=== PATIENT | female | born 1995 | race Caucasian/White ===

== ENCOUNTER 2020-01-18 23:36 | Emergency (ER) | payer OTHER ==
[~2020-01-18] VITALS: Ht 162.6 cm; Wt 56.7 kg
[2020-01-18 23:47] VITALS: Ht 162.6 cm; Wt 56.7 kg
[2020-01-19 01:35] LABS: UA SPECIFIC GRAVITY 1.015 (1.005-1.035); microscopic required? YES; urine erythrocyte 2+ (NEGATIVE)
[2020-01-19 01:56] VITALS: BP 107/58
== END 2020-01-19 01:56 | disposition home or self-care (01) ==
LOC: ED 23:36
PROVIDERS: Specialist
DX: S30.811A Abrasion of abdominal wall, initial encounter (principal); S20.312A Abrasion of left front wall of thorax, initial encounter; M54.5 Low back pain; V49.59XA Passenger injured in collision with other motor vehicles in traffic accident, initial encounter; Y93.89 Activity, other specified; Y92.488 Other paved roadways as the place of occurrence of the external cause; Y99.8 Other external cause status
CPT/HCPCS: 72072

== ENCOUNTER 2020-01-20 15:18 | Emergency (ER) | payer OTHER ==
[~2020-01-20] VITALS: Ht 162.6 cm; Wt 57.6 kg
[2020-01-20 15:20] VITALS: Ht 162.6 cm; Wt 57.6 kg
[2020-01-20 17:04] VITALS: BP 125/72
== END 2020-01-20 17:04 | disposition home or self-care (01) ==
LOC: ED 15:18
DX: S30.811A Abrasion of abdominal wall, initial encounter (principal); R31.9 Hematuria, unspecified; M54.5 Low back pain; V49.59XA Passenger injured in collision with other motor vehicles in traffic accident, initial encounter; Y93.89 Activity, other specified; Y92.488 Other paved roadways as the place of occurrence of the external cause; Y99.8 Other external cause status